=== PATIENT | female | born 1940 | race Caucasian/White ===

== ENCOUNTER 2023-05-03 09:06 | Day surgery (SDC) | payer OTHER ==
[2023-04-30 17:56] VITALS: BMI 22.7
[2023-05-03 09:35] VITALS: BP 121/55; PULSE 79; RESP 18; TEMP 98.1
[2023-05-03] MEDS ORDERED: TRANEXAMIC ACID 1000 MG/10 ML VIAL IVPUSH ONE (11:00)
[2023-05-03] MEDS ORDERED: CEFAZOLIN 2 GM in DEXTROSE 5%-WATER 100 ML IVPB ONE (11:00)
[2023-05-03] MEDS ORDERED: VANCOMYCIN/WATER FOR INJ (PEG) 1,000 MG/200 ML BAG IVPB ONE (11:30)
== END 2023-05-03 12:00 | disposition home or self-care (01) | DRG 951 ==
LOC: FASUSAT 09:06 → FM/S 09:06 → UNDOADMIN 09:06 → UNDODISIN 12:00 → FASUSAT 12:00
PROVIDERS: ATTEND Orthopaedic Surgery
DX: Z53.9 Procedure and treatment not carried out, unspecified reason (principal)
CPT/HCPCS: 82962

== ENCOUNTER 2023-05-18 06:16 | Inpatient (IN) | payer OTHER ==
[2023-05-09 17:23] VITALS: BMI 22.7
[2023-05-18] MEDS ORDERED: CEFAZOLIN 2 GM in DEXTROSE 5%-WATER - 100 ML IVPB ONE (07:00)
[2023-05-18] MEDS ORDERED: SUCCINYLCHOLINE CHLORIDE 200 MG/10 ML SYRINGE ONE (07:20)
[2023-05-18] MEDS ORDERED: PROPOFOL 40 ML ONE (07:20)
[2023-05-18] MEDS ORDERED: ROCURONIUM BROMIDE 50 MG/5 ML SYRINGE ONE (07:21)
[2023-05-18] MEDS ORDERED: VANCOMYCIN 1,000 MG VIAL (RESTRICTED TO ID ONLY) ONE (07:27)
[2023-05-18] MEDS ORDERED: TRANEXAMIC ACID 1000 MG/10 ML VIAL ONE (07:27)
[2023-05-18] MEDS ORDERED: VANCOMYCIN 1 GM in D5W (PRE-DOCKED) 1,000 MG/250 ML (RESTRICTED TO ID ONLY IVPB ONE (07:33)
[2023-05-18] MEDS ORDERED: MIDAZOLAM HCL 2 MG/2 ML SINGLE DOSE VIAL ONE (07:36)
[2023-05-18] MEDS ORDERED: ROPIVACAINE HCL 0.5% 30ML VIAL ONE (07:36)
[2023-05-18] MEDS ORDERED: FENTANYL CITRATE/PF 50 MCG/ML VIAL ONE (07:44)
[2023-05-18] MEDS ORDERED: TRANEXAMIC ACID 1000 MG/10 ML VIAL IVPUSH ONE (08:00)
[2023-05-18] MEDS ORDERED: ePHEDrine SULFATE 50 MG/1 ML AMPULE ONE ×2 (08:32→09:07)
[2023-05-18] MEDS ORDERED: SUGAMMADEX SODIUM 200 MG/2 ML VIAL ONE (10:12)
[2023-05-18] MEDS ORDERED: ONDANSETRON 4 MG/2 ML VIAL IVPUSH PRN ×2 (10:42→10:57)
[2023-05-18] MEDS ORDERED: MAGNESIUM HYDROX 2400MG/30ML ORAL SUSPENSION 30 ML CUP PO PRN (10:42)
[2023-05-18] MEDS ORDERED: MAG HYDROX/AL HYDROX/SIMETH 30 ML UNIT-DOSE CUP PO PRN (10:42)
[2023-05-18] MEDS ORDERED: traMADol HCL 50 MG TABLET PO PRN (10:50)
[2023-05-18] MEDS ORDERED: ALBUTEROL SO4 HFA INHALER IH PRN (10:52)
[2023-05-18] MEDS ORDERED: ACETAMINOPHEN INJECTION 100 ML IVPB ONE (10:54)
[2023-05-18] MEDS: ACETAMINOPHEN 1000 MG/100 ML BAG IVPB SCH ×2 (11:00→18:40)
[2023-05-18] MEDS ORDERED: LACTATED RINGERS SOLUTION 1,000 ML IV SCH (11:00)
[2023-05-18 14:34] VITALS: RESP 18
[2023-05-18] MEDS: CEFAZOLIN SODIUM 2 GM in DEXTROSE 5%-WATER 100 ML IVPB SCH (16:07)
[2023-05-18] MEDS: INSULIN SLIDING SCALE (NOVOLOG) 1 VIAL SQ SCH ×2 (16:58→22:17)
[2023-05-18] MEDS: CARVEDILOL 12.5 MG TABLET (FP) PO SCH (21:05)
[2023-05-18] MEDS: SENNOSIDES/DOCUSATE COMBO (SENNA PLUS) TABLET (UD) PO SCH (21:11)
[2023-05-18] MEDS: BUDESONIDE/FORMETEROL FUMARATE 80/4.5 mcg INHALER IH SCH (21:11)
[2023-05-18] MEDS ORDERED: PATIENT'S OWN MEDICATION (NON-FORMULARY) (Olmesartan Medoxomil 20 MG Tablet) PO SCH (22:00)
[2023-05-18] MEDS ORDERED: LOSARTAN POTASSIUM 50 MG TABLET PO SCH (22:00)
[2023-05-18] MEDS ORDERED: CARVEDILOL 12.5 MG TABLET (FP) PO SCH (22:00)
[2023-05-18] MEDS ORDERED: SENNOSIDES 8.6MG TABLET (FP) PO SCH (22:00)
[2023-05-18] MEDS ORDERED: PATIENT'S OWN MEDICATION (NON-FORMULARY) (Fluticasone Propion/Salmeterol [Wixela 250-50 In IH SCH (22:00)
[2023-05-18] MEDS ORDERED: amLODIPine BESYLATE 10 MG TABLET (FP) PO SCH ×2 (22:00)
[2023-05-18] MEDS ORDERED: FLUTICASONE PROP 0.05% 16 GM NASAL SPRAY NS SCH (22:00)
[2023-05-18] MEDS ORDERED: EZETIMIBE 10 MG TABLET (FP) PO SCH (22:00)
[2023-05-18] MEDS: oxyCODONE HCL 5 MG TABLET PO PRN (23:32)
[2023-05-19] MEDS: HYDROmorphone HCl 2 MG/ML VIAL IVPB PRN ×2 (00:20→02:22)
[2023-05-19] MEDS: CEFAZOLIN SODIUM 2 GM in DEXTROSE 5%-WATER 100 ML IVPB SCH ×2 (00:30→08:17)
[2023-05-19] MEDS: ACETAMINOPHEN 1000 MG/100 ML BAG IVPB SCH ×2 (02:26→12:31)
[2023-05-19] MEDS: oxyCODONE HCL 5 MG TABLET PO PRN ×2 (06:09→12:28)
[2023-05-19 06:30] VITALS: BP 104/40; PULSE 86; TEMP 98.1
[2023-05-19] MEDS: INSULIN SLIDING SCALE (NOVOLOG) 1 VIAL SQ SCH ×2 (06:53→12:32)
[2023-05-19] MEDS: CARVEDILOL 12.5 MG TABLET (FP) PO SCH (09:05)
[2023-05-19] MEDS: SENNOSIDES/DOCUSATE COMBO (SENNA PLUS) TABLET (UD) PO SCH (09:05)
[2023-05-19] MEDS: BUDESONIDE/FORMETEROL FUMARATE 80/4.5 mcg INHALER IH SCH (09:11)
[2023-05-19 09:17] LABS: BLOOD UREA NITROGEN 16.9 mg/dl (7-18); CALCIUM 7.8 mg/dl (8.5-10.1); CREATININE 0.7 mg/dl (0.6-1.3); POTASSIUM 4.2 mmol/L (3.5-5.1)
[2023-05-19 09:32] LABS: HEMOGLOBIN 10.2 G/dL (10.7-15.3); MCH 30.8 pg (25.7-33.7); MCHC 32.8 g/dl (32.0-36.0); PLATELET COUNT 176.3 10^3/uL (134-434); RDW 15.4 % (11.6-15.6); WHITE BLOOD COUNT 12.8 10^3/uL (4.0-10.8)
[2023-05-19] MEDS ORDERED: PATIENT'S OWN MEDICATION (NON-FORMULARY) (Ubidecarenone [Coq-10] 100 MG Capsule) PO SCH (10:00)
[2023-05-19] MEDS ORDERED: TAMOXIFEN CITRATE 10 MG TABLET PO SCH (10:00)
[2023-05-19] MEDS ORDERED: ASPIRIN 325 MG TABLET PO SCH (10:00)
[2023-05-19] MEDS ORDERED: ASPIRIN 325 MG ENTERIC COATED TABLET (FP) PO SCH (10:00)
[2023-05-19] MEDS ORDERED: VANCOMYCIN 1 GM/200 ML PREMIX BAG (RESTRICTED TO ID ONLY) IVPB ONE (10:00)
[2023-05-19] MEDS ORDERED: PANTOPRAZOLE 40 MG TABLET PO SCH (10:00)
== END 2023-05-19 12:57 | disposition home or self-care (01) | DRG 483 ==
LOC: FM/S 06:16
PROVIDERS: ADMIT Student in an Organized Health Care Education/Training Program; ATTEND Nurse Practitioner Family
PROC: 0LS30ZZ Reposition Right Upper Arm Tendon, Open Approach (ICD-10-PCS; 2023-05-18)
PROC: 0RRJ0JZ Replacement of Right Shoulder Joint with Synthetic Substitute, Open Approach (ICD-10-PCS; principal; 2023-05-18 08:39)
DX: M19.011 Primary osteoarthritis, right shoulder (principal); I10 Essential (primary) hypertension; E78.5 Hyperlipidemia, unspecified; J45.909 Unspecified asthma, uncomplicated; E11.9 Type 2 diabetes mellitus without complications; M75.21 Bicipital tendinitis, right shoulder
CPT/HCPCS: 36415; 73030-TC-RT-FY; 80048; 82962; 85027; 88305-TC; 88311-TC; 94760; 97116-GP; 97161-GP; C1713; C1776